=== PATIENT | female | born 1950 | race Native Hawaiian/Other Pacific Islander ===

== ENCOUNTER 2021-10-31 18:44 | Emergency (ER) | payer OTHER ==
[~2021-10-31] VITALS: Ht 165.1 cm; Wt 86.2 kg
[2021-10-31 20:02] LABS: PLATELET COUNT 283 K/uL (152-353)
[2021-10-31 20:12] LABS: POTASSIUM 3.9 mmol/L (3.6-5.2)
[2021-10-31 22:55] VITALS: BP 124/75; TEMP 98.1
== END 2021-10-31 22:55 | disposition short-term general hospital (02) ==
LOC: ED 18:44
PROVIDERS: Emergency Medicine Emergency Medical Services
DX: I21.4 Non-ST elevation (NSTEMI) myocardial infarction (principal); J44.1 Chronic obstructive pulmonary disease with (acute) exacerbation; I10 Essential (primary) hypertension; Z11.52 Encounter for screening for COVID-19
CPT/HCPCS: 36415; 36600; 80053; 82805; 83605; 83735; 83880; 84484; 85027; 85610; 87040; 87635; 93005; 94664; 96360; 96361; 96365; 96366; 96372; 96375; 99284; J1650; J1956; J2930; J3490; U0003

== ENCOUNTER 2022-02-03 21:22 | Emergency (ER) | payer OTHER ==
[~2022-02-03] VITALS: Ht 162.6 cm; Wt 81.6 kg
[2022-02-03 22:22] LABS: PLATELET COUNT 190 K/uL (152-353)
[2022-02-03 22:38] LABS: POTASSIUM 3.2 mmol/L (3.6-5.2)
[2022-02-03 22:44] LABS: PARTIAL THROMBOPLASTIN TIME 23.4 SECONDS (24.5-33.6)
[2022-02-03 23:25] VITALS: BP 144/58
== END 2022-02-03 23:25 | disposition home or self-care (01) ==
LOC: ED 21:22
PROVIDERS: Hospitalist
DX: R60.0 Localized edema (principal); G62.89 Other specified polyneuropathies
CPT/HCPCS: 36415; 80053; 82550; 83880; 84484; 85027; 85610; 85730; 93005; 96374; 99284; J1940